=== PATIENT | female | born 1990 | race Caucasian/White ===

== ENCOUNTER 2018-10-23 15:10 | Emergency (ER) | payer OTHER ==
[2018-10-23 15:10] VITALS: BP 123/71
--- NOTE | 2018-10-23 16:18 | PHYS DOC ---
Past History Past Medical History: No Pertinent History Past Surgical History: No Surgical History Alcohol Use: None Drug Use: None Adult General Chief Complaint Chief Complaint: HAND PROBLEM HPI HPI Patient is a 28 year old female who presents with complaint of right thumb pain. Patient states that approximately 30 minutes prior to arrival she injured her right thumb while sliding down a slide with her daughter. She states that she was coming down her right thumb caught on the slide and then backward heard started having immediate pain and swelling to the right thumb base. Came to the emergency department shortly after injury. Has not taken any medications for symptoms denies any other injuries. Rates pain a my evaluation as 9 out of 10 with attempted movement. Denies radiation of pain into the wrist or forearm. Review of Systems Review of Systems Constitutional: Denies fever or chills [] Eyes: Denies change in visual acuity, redness, or eye pain [] HENT: Denies nasal congestion or sore throat [] Musculoskeletal: Right thumb pain[] Integument: Denies rash or skin lesions [] Neurologic: Denies headache, focal weakness or sensory changes [] All other systems were reviewed and found to be within normal limits, except as documented in this note. Current Medications Current Medications Current Medications Medications (Trade) Dose Ordered Sig/Deny Start Time Stop Time Status Last Admin Dose Admin Acetaminophen (Tylenol) 1,000 mg 1X ONCE 10/23/18 16:30 10/23/18 16:31 Ibuprofen (Motrin) 600 mg 1X ONCE 10/23/18 16:40 10/23/18 16:41 Allergies Allergies Allergies Coded Allergies Type Severity Reaction Last Updated Verified No Known Drug Allergies 10/23/18 No Physical Exam Physical Exam Constitutional: Alert, afebrile, appears in [id number] discomfort. [] HENT: Normocephalic, atraumatic, bilateral external ears normal, oropharynx moist, no oral exudates, nose normal. [] Skin: Warm, dry, no erythema, no rash. [] Extremities: Moderate soft tissue swelling to right first MCP and thenar eminence of right thumb, tenderness to palpation diffusely through right MCP joint, limited extension and flexion at MCP joint secondary to pain. [] Neurologic: Alert and oriented X 3, normal motor function, normal sensory function, no focal deficits noted. [] Current Patient Data Vital Signs Vital Signs Date Time Temp Pulse Resp B/P (MAP) Pulse Ox O2 Delivery O2 Flow Rate FiO2 10/23/18 15:10 77 20 95 10/23/18 15:10 Room Air Lab Results not performed EKG EKG Not performed[] Radiology/Procedures Radiology/Procedures [address] [address] IMAGING REPORT Signed PATIENT: BLAIRE SYKES ACCOUNT: [id number] : 1990 LOCATION: ER AGE: 28 SEX: F EXAM STATUS: REG ER ORD. PHYSICIAN: MARCIA ROWELL MD REASON: Injury to the right thumb today, pain extends into palm PROCEDURE: HAND RIGHT 3V Examination: 3 views of the right hand HISTORY: History of injury to the right thumb COMPARISON: None available FINDINGS: The alignment of the metacarpophalangeal, interphalangeal joints grossly appears unremarkable. There is no acute fracture or dislocation identified. IMPRESSION: No acute osseous findings. Electronically signed by: Brandon Cole MD (10/23/2018 4:35 PM) [facility] [place] DICTATED AND SIGNED BY: BRANDON COLE MD DATE: 10/23/18 1635 CC: MARCIA ROWELL MD; PCP,NO ~ [] Course & Med Decision Making Course & Med Decision Making Pertinent Labs and Imaging studies reviewed. (See chart for details) X-rays negative for fracture. Patient provided with immobilization of right thumb with aluminum splint. Advised gentle range of motion as tolerated. Discharged with prescription for ibuprofen. Advised follow-up with primary doctor in 5-7 days for reevaluation and recommended follow-up with Dr. Steinberg of hand surgery in 10-14 days for follow-up if symptoms are not improving. Recommended return to emergency department for any worsening symptoms. Patient was understanding and in agreement with treatment plan.[] Dragon Disclaimer Dragon Disclaimer This electronic medical record was generated, in whole or in part, using a voice recognition dictation system. Departure Departure: Impression: Primary Impression: Sprain of hand, thumb, right Disposition: 01 HOME, SELF-CARE Condition: IMPROVED Referrals: PCP,NO (PCP) ADELE HUNTER MD Patient Instructions: Thumb Sprain Additional Instructions: You may call the office of Dr. Martinez, orthopedic surgeon, and request an appointment with Dr. Steinberg, orthopedic hand surgeon, for evaluation in the next 10 days. If unable to make an appointment, then follow with your primary doctor in the next 5-7 days. Return to the emergency department for any worsening symptoms. Scripts Ibuprofen (IBUPROFEN) 600 Mg Tablet 600 MG PO Q6HRS PRN for PAIN, #30 TAB Prov: MARCIA ROWELL MD 10/23/18 Problem Qualifiers Primary Impression: Sprain of hand, thumb, right Encounter type: initial encounter Sprain of finger site: metacarpophalangeal joint Qualified Codes: S63.641A - Sprain of metacarpophalangeal joint of right thumb, initial encounter MARCIA ROWELL MD Oct 23, 2018 16:18
[2018-10-23] MEDS ORDERED: ACETAMINOPHEN 500 MG TABLET PO ONE (16:30)
[2018-10-23] MEDS ORDERED: IBUP600T16 PO (16:30)
--- NOTE | 2018-10-23 16:38 | RAD ---
Examination: 3 views of the right hand HISTORY: History of injury to the right thumb COMPARISON: None available FINDINGS: The alignment of the metacarpophalangeal, interphalangeal joints grossly appears unremarkable. There is no acute fracture or dislocation identified. IMPRESSION: No acute osseous findings. Electronically signed by: Brandon Cole MD (10/23/2018 4:35 PM) [facility]
[2018-10-23] MEDS ORDERED: IBUPROFEN 600 MG TABLET. PO ONE (16:40)
== END 2018-10-23 17:07 | disposition home or self-care (01) ==
LOC: ER 15:10
DX: S63.641A Sprain of metacarpophalangeal joint of right thumb, initial encounter (principal); W23.0XXA Caught, crushed, jammed, or pinched between moving objects, initial encounter; Y93.89 Activity, other specified; Y92.89 Other specified places as the place of occurrence of the external cause; Y99.8 Other external cause status
CPT/HCPCS: 29125; 73130; 99283